=== PATIENT | male | born 1955 | race Caucasian/White ===

== ENCOUNTER → 2016-08-25 | Outpatient (CLI) | payer MEDICARE ==
[~2016-08-25] MED LIST: ACTOS TAB 15MG15 MG PO; CITALOPRAM HBR40 MG PO; CRESTOR10 MG PO; DOXYCYCLINE HY100 MG PO; FENOFIBRATE145 MG PO; LEVOTHYROXINE50 MCG PO; LISINOPRIL20 MG PO; MOBIC15 MG PO; POTASSIUM CHLO20 ME1 PO; TANZEUM50 MG/0.5 SQ; ULTRAM50 MG PO
== END ==
LOC: RAD 16:39
DX: M79.641 Pain in right hand (principal); M19.042 Primary osteoarthritis, left hand; M19.041 Primary osteoarthritis, right hand; S62.396A Other fracture of fifth metacarpal bone, right hand, initial encounter for closed fracture
CPT/HCPCS: 73130